=== PATIENT | female | born 1995 | race Hispanic/Latino ===

== ENCOUNTER 2017-09-30 12:58 | Emergency (ER) | payer OTHER ==
[~2017-09-30] VITALS: Ht 160 cm; Wt 46.0 kg
--- NOTE | 2017-09-30 14:36 | Diagnostic Imaging Report ---
PROCEDURE:X-RAY LEFT ELBOW, COMPLETE COMPARISON:None. INDICATIONS:FALL, HIT ELBOW FINDINGS: There are no fractures, dislocations, lytic or blastic lesions. The bones are well-mineralized. The soft-tissues are unremarkable. CONCLUSION: No acute fracture or dislocation of the left elbow. Dictated by: Amarjit Louis M.D. on 09/30/2017 at 14:42 Electronically approved by: Amarjit Louis M.D. on 09/30/2017 at 14:42
[2017-09-30 16:14] VITALS: BP 115/78
== END 2017-09-30 16:05 | disposition home or self-care (01) ==
LOC: ER 12:58
DX: S50.02XA Contusion of left elbow, initial encounter (principal); W22.09XA Striking against other stationary object, initial encounter; Y93.18 Activity, surfing, windsurfing and boogie boarding; Y92.34 Swimming pool (public) as the place of occurrence of the external cause
CPT/HCPCS: 99283